=== PATIENT | male | born 1970 | race Caucasian/White ===

== ENCOUNTER → 2022-04-01 | Outpatient (CLI) | payer BC, SELFPAY ==
--- NOTE | 2022-04-01 06:39 | MRI_ITS ---
STUDY: MRI BRAIN WITH AND WITHOUT CONTRAST (ATTENTION INTERNAL AUDITORY CANALS - I.A.C.''s) REASON FOR EXAM: Male, 52 years old. L HEARING LOSS TECHNIQUE: Standardized multiplanar fat and water weighted pulse sequences were obtained. IV 20cc dotarem was administered for the contrast portion of the examination. COMPARISON: None. FINDINGS: Normal bilateral temporal bones. Normal bilateral internal auditory canals. There is no demonstrated intracanalicular or cisternal vestibular schwannoma (acoustic neuroma). There is no enhancement of the bilateral VIIth or VIIIth cranial nerves. Normal bilateral cochlea, vestibules and semicircular canals. Normal size of the ventricles and extra-axial spaces for the patient''s age. Normal white matter tracts of the supratentorial brain. There is no evidence for recent intracranial ischemia or other cause of cytotoxic edema on diffusion weighted imaging (DWI). Normal bilateral basal ganglia. Normal thalami. Normal flow voids within the major intracranial circulation suggesting patency by spin echo criteria. Normal venous enhancement. There is no enhancing intra-axial or extra-axial abnormality. There is no extra-axial fluid accumulation. Normal sella turcica, pituitary gland, infundibular stalk, optic chiasm and hypothalamus. Normal tectal plate and pineal gland. Normal midbrain, sumit and medulla. Normal cerebellum. Normal basal cisterns. No demonstrated orbital abnormality, within the constraints of a routine brain study. Normal visualized paranasal sinuses. Normal calvarium and skull base. Normal visualized soft tissue structures. Normal visualized upper cervical spine. MRI/Brain W/WO Contrast IMPRESSION: Normal unenhanced and enhanced MRI of the bilateral internal auditory canals (I.A.C''s). Electronically Signed: Otis Rayo MD at 17:36 EDT ,
== END | disposition home or self-care (01) ==
PROVIDERS: Referring Provider Otolaryngology Otolaryngology/Facial Plastic Surgery; Visit Provider Otolaryngology Otolaryngology/Facial Plastic Surgery
DX: H91.22 Sudden idiopathic hearing loss, left ear (principal)
CPT/HCPCS: 70553; A9575

== ENCOUNTER → 2025-09-25 | Outpatient (CLI) | payer BC, SELFPAY ==
--- NOTE | 2025-09-25 09:28 | US_ITS ---
PROCEDURE: EXT NON VASC LIMITED/SOFT TISS 09/25/2025 REASON FOR EXAM: 2 CYSTS OF RIGHT SHOULDER AREA AND OF BACK TECHNIQUE: Procedure Code: [id number] Modality: US Procedure: EXT NON VASC LIMITED/SOFT TISS COMPARISON: None. FINDINGS: In the area of concern, there is a circumscribed subcutaneous mass with mixed echogenicity and no internal blood flow. This lesion is located in the left/midline back and measures approximately 1.9 x 1.4 x 1.8 cm. A 2nd lesion of similar character is present in the right posterior shoulder region measuring 2.4 x 1.4 x 2.3 cm. Both structures demonstrate a superficial tract leading towards the skin surface. US/Ext Non Vasc Limited/Soft Tiss IMPRESSION: Two subcutaneous lesions with imaging features most compatible with epidermal i nclusion cysts. No sonographic evidence of inflammation or abscess formation. Reading Location: [id number]
--- OUTSIDE RECORDS SUMMARY | 2025-09-25 10:35 | XMS RPT_ITS | CCD ---
Author Organization [facility] Inform ion Partnership [facility] Care Team Providers Care Heating Repair Technician Name Role Phone Neo MORFIN.Bailey BISHOP Primary Care Provider BAILEY SWAN Attending Unavailable BAILEY SWAN Primary Care Unavailable Care Physician, No Primary Referring Unava ilable Care Physician, No Primary Primary Care Unava ilable Mayo Szymanski Attending Unavailable Mayo Szymanski Attending Unavailable Neo CREPE SOLE WIRE BRUSHER, Bailey Primary Care Unavailable Mayo Szymanski Referring Unavailable Medications Completed/Discontinued Medications Medication Drug Class(es) Dates Sig (Normalized) Sig (Original) hydroCHLOROthiazide 25 mg oral tablet (4 sources) Thiazide Diuretic Start: 3 take 1 tablet by mouth once daily hydroCHLOROthiazide 25 mg tablet Indications: Primary hypertension Take 1 tablet by mouth once daily. 30 tablet 2 08/18/2023 Active Comment on above: Take 1 tablet by joan th once daily. Problems Problem Classification Problem Date Documented Da te Episodic/Chronic Essential hypertension (2 sources) Essential hypertension; Translations: [Essential (primary) hypertension] Onset: 09-16-2025 09-23-2023 Chronic Other circulatory disease (7 sources) Elevated blood-pressure reading without diagnosis of hypertension; Translations: [Elevated blood-pressure reading, without diagnosis of hypertension] Onset: 07-20-2023 07-20-2023 Episodic Other nutritional; endocrine; and metabolic disorders (6 sources) Obese class I; Translations: [Obesity, unspecified] Onset: 07-20-2023 07-20-2023 Chronic Other screening for suspected conditions (not mental disorders or infectious disease) (6 sources) Patient encounter status; Translations: [Encounter for screening for lipoid disorders] Onset: 09-16-2025 07-20-2023 Episodic Other skin disorders (2 sources) Follicular cyst of the skin and subcutaneous tissue, unspecified; Translations: [Follicular cyst of the skin and subcutaneous tissue, unspecified] Onset: 09-11-2025 Episodic Residual codes; unclassified (6 sources) Edema of lower leg ; Translations: [Localized edema] Onset: 07-20-2023 07-20-2023 Episodic Results Test Name Value Interpretation Reference Range Kendal Lee 09-16-2025 CNOV Office Visit (AGFAMPLE) CORNELL MEYERS ([id number]) 1970 M Date Time Provider Department 09/16/25 10:20 AM BAILEY SWAN During your visit today, we recorded the following information about you: Temperature Pulse Respiration Blood pressure 98.1 degrees 88/minute 16/minute 140/86 Weight Height 112.9 kg 1.803 m Bailey Swan APRN.HEARING CARE PRACTITIONER 09/16/2025 12:52 PM Signed CHIEF COMPLAINT: The patient is a 55-year-old male with hypertension, presenting for evaluation of elevated blood pressure readings. I reviewed past medical, surgical, social, and family histories today and updated chart. Allergies, chronic medications, and supplements were also reviewed. Recording using [employer] software for draft documentation of the visit was discussed with the patient/authorized termite control representative; all questions welcomed and answered. Patient/authorized termite control representative agreed to proceed Hypertension: - Last seen in 2022. - Previously managed with HCTZ; discontinued after refills ran out. - Recent BP readings in the 160s, prompting today's visit. - Recent BP at environmental specialist's office was 160/?. - Typical BP readings range from 120-130 mmHg. - Current BP readin/84 mmHg. - Denies chest pain, dyspnea, or peripheral edema. - Occasional sinus headaches; denies dizziness. - Increased stress and anxiety due to work and upcoming anniversary of nephew's passing. - Consumes 2 cups of coffee daily during the week; none on weekends. - Drinks water regularly, especially on office days. - Diet includes frozen vegetables; avoids adding salt but consumes some processed foods. - Walks 6,000 steps daily, 3 days a week; aims to be more active at home. - Former smoker, smoked for one month in early 20s; denies current tobacco use. - Denies alcohol use. PAST MEDICAL HISTORY Diagnosis Date Tinnitus left ear PAST SURGICAL HISTORY Procedure Laterality Date APPENDECTOMY EXTRACTION ERUPTED TOOTH/EXR SOCIAL HISTORY[1] ALLERGIES No Known Allergies Family History Problem Relation Age of Onset other (HTN) Mother other (HTN) Father Lung Cancer Father Crohn's Disease Brother Half-brother may be from his dad's side Asthma Maternal Grandmother Emphysema Maternal Grandfather Current Outpatient Medications Medication Sig Dispense Refill Blood Pressure Monitor 1 each as directed. 1 kit 0 No current facility-administered medications for this visit. Review of Systems Head: (+) sinus headaches Ears/Nose/Mouth/Throa t: (+) nasal dryness Cardiovascular: (-) chest pain, (-) peripheral edema Respiratory: (-) shortness of breath Neurological: (-) dizziness Psychiatric: (+) anxiety BP 140/86 Pulse 88 Temp (Src) 98.1 (Oral) Resp 16 Ht 5' 11" (1.80m) Wt 249 lb (112.9kg) SpO2 98% BMI 34.74 kg/(m2). 09/16/25 1007 09/16/25 1050 BP: 148/84 140/86 Pulse: 88 Resp: 16 Temp: 36.7 ?C (98.1 ?F) TempSrc: Oral SpO2: 98% Weight: 112.9 kg (249 lb) Height: 180.3 cm (5' 11") Physical Exam GENERAL: NAD, alert and oriented. SKIN: Unremarkable, no rash or skin lesions. NECK: Supple, no lymphadenopathy, normal thyroid LUNGS: Clear to auscultation bilaterally, no wheezes/rhonchi/rales . HEART: Regular rate and rhythm, no murmurs. No ectopy. EXTREMITIES: Normal, no deformities, no skin discoloration, no edema. NEURO: Awake, alert and oriented x3 No visits with results within 1 Day(s) from this visit. Latest known visit with results is: Appointment on 09/28/2023 Component Date Value Ref Range Status Glucose 09/28/2023 88 74 - 99 mg/dL Final The [place] Diabetes Association (ADA) provides guidance for cutoff values for fasting glucose and random glucose. The ADA defines fasting as no caloric intake for at least 8 hours. Fasting plasma glucose results between 100 to 125 mg/dL indicate increased risk for diabetes (prediabetes). Fasting plasma glucose results greater than or equal to 126 mg/dL meet the criteria for diagnosis of diabetes. In the absence of unequivocal hyperglycemia, results should be confirmed by repeat testing. In a patient with classic symptoms of hyperglycemia or hyperglycemic crisis, random plasma glucose results greater than or equal to 200 mg/dL meet the criteria for diagnosis of diabetes. Reference: Standards of Medical Care in Diabetes 2016, [place] Diabetes Association. Diabetes Care. 2016.39(Suppl 1). BUN 09/28/2023 11 9 - 24 mg/dL Final Creatinine 09/28/2023 0.99 0.73 - 1.22 mg/dL Final Sodium 09/28/2023 144 136 - 144 mmol/L Final Potassium 09/28/2023 3.9 3.7 - 5.1 mmol/L Final Chloride 09/28/2023 104 97 - 105 mmol/L Final CO2 09/28/2023 29 22 - 30 mmol/L Final Anion Gap 09/28/2023 11 9 - 18 mmol/L Final Calcium, Total 09/28/2023 9.4 8.5 - 10.2 mg/dL Final Estimated Glomerular Filtration Ra* 09/28/2023 92 >=60 mL/min/1.73m? Final Larisa (more content not included)... Normal [facility] Visit Report on 09-11-2025 Plastic Surgery Visit Report [facility] Plastic Reconstructive Surgery [address], [address] [place] [address] OFFICE VISIT Date of Service: 09/11/25 MR#: [id number] Acct: [id number] Name: CORNELL MEYERS Rep #: [id number] : 1970 Provider: TATE Dailey Age/Sex: 55/M Location[facility] Status: Signed Reviewed and agree Intake Vital Signs 09/11/25 13:36 Height 6 ft Weight: 257 lb BMI 34.8 BP 159/109 H Blood Pressure Location Rt brachial Position Sitting Respiration 18 Pulse 98 Pulse Source Monitor Pulse Oximetry (%) 98 Oxygen Delivery Method room air Intake Visit Reasons: Cyst on right shoulder and middle back Chief Complaint: cyst on right shoulder Is patient in pain?: No Allergies No Known Allergies Allergy (Unverified 09/11/25 09:20) Medications ???Medication ???Instructions ???Recorded ???Confirmed ???Type NK 09/11/25 09/11/25 History Nurse's Note: pt blood pressure elevated. Pt states he is stressed this morning. Advised him to monitor [facility] Medical History (Updated 09/12/25 @ 16:[address] Jamie Smalls MD) Benign skin cyst Hypertension Social History Smoking Status: Never smoker HPI Cyst on right shoulder and middle back Details: Patient is a 55-year-old male presenting today for initial consultation for cyst in right shoulder area he was by [facility] dermatology. Past medical history significant for hypertension not c urrently on any medications. Patient states he had left anterior chest wall cyst, right shoulder cyst and mid back cyst a very long time. Left anterior chest cyst spontaneously started draining and [facility]. There is a scant drainage not currently on antibiotics and pending excision. He noticed his right shoulder cyst has been growing overtime. Denies pain, numbness, tingling, swelling, fever, chills. He does not smoke, does not use tobacco products, does not have history of diabetes, hypothyroid, healing issues, bleeding or clotting issues. ROS Details General: Denies fever, chills HEENT: Denies headaches, vision changes, sore throat Cardio: Denies chest pain, leg edema Pulmonary: Denies shortness of pain, cough, wheezing GI: Denies nausea, vomiting, diarrhea General General: Yes good health; No fatigue, fever(s) or weight loss HENMT HENMT: No rhinitis, sore throat/mouth sore, nasal congestion, contacts or glaucoma Endo Endocrine: No thyroid disease, polydipsia, heat intolerance, cold intolerance, hepatitis or excessive urine Skin Skin: No Bleeding, bruising, changing moles or suspicious lesion Musc Musculoskeletal: No joint pain, joint stiffness, muscle weakness, back pain, osteoarthritis or Muscle aches/ myalgia Neuro Neurological: No headache(s), No lightheadedness and No numbness Cardio Cardiovascular: No chest pain, pacemaker, fatigue or shortness of breat with exertion Psych Psychiatric: No depression, claustrophobia or anxiety Resp Respiratory: No spitting up, shortness of breath, sleep apnea, asthma, emphysema, TB, Cough or Smoker Gastro Gastrointestinal: No diarrhea, constipation, blood in stool, nausea, vomiting or abdominal bloating Gerardo Hematologic: No anemia, No bleeding and No abnormal bleeding Genitourinary: No urinary frequency, blood in urine or incontinence Exam Details Hypertensive 159/109, no acute distress Left anterior chest wall with scabbing and scant serous drainage noted. No surrounding erythema, induration, fluid collection. Right supraspinatus area has 4 cm x 3 cm mobile well-circumscribed cyst, nontender to palpation, no induration, drainage, no erythema Mid back (midline) 1 cm by approximately mobile well-circumscribed cyst nontender to palpation no induration drainage or erythema. No axillary lymphadenopathy. right shoulder range of motion intact, grossly normal strength Coding Level of Care Code Off vis,new,level 2 Diagnoses Benign skin cyst L72.9 Assessment and Plan (No Qualifiers) Assessment and Plan (1) Benign skin cyst: Status: Acute Plan: Will obtain right shoulder area ultrasound to assess depth and surrounding structures and for surgical planning. He does not wish to have his mid back cyst addressed at this time. Advised patient to follow up with PCP to have HTN reassessed and start medical treatment if needed Return in 2 weeks for US results and surgical discussion. He was in agreement with plan. 09/12/25 1619 Date Jamie Smalls MD 09/11/25 1415 Cosigner Signature: Date (if applicable) Mayo Szymanski CC: Normal [facility] CORONAVIRUS 2019 BY PCRon CORONAVIRUS 2019,PCR DETECTED Abnormal Not Detected [facility] Comment on above: Order Comment: RESUL TS CALLED RB TO ROQUE, 10/07/2020 09:23 Result Comment: . This assay is designed to detect the N, ORF1ab and/or S genes of SARS-CoV-2 via nucleic acid amplification. A Negative (NOT DETECTED) result does not preclude 2019-nCoV infection since the adequacy of sample collection and/or low viral burden may result in presence of viral nucleic acids below the clinical sensitivity of this test method. Negative (NOT DETECTED) result should not be used as the sole basis for treatment or other patient management decisions. Rather negative results should be combined with clinical observations, patient history, and epidemiological information to make patient management decisions. Fact sheet for providers: https://www.fda.gov/media/592407/download Fact sheet for patients: https://www.fda.gov/media/353686/download This test has received FDA Emergency Use Authorization (EUA) and has been verified by [facility] ([facility]). This test is only authorized for the duration of time that circumstances exist to justify the authorization of the emergency use of in vitro diagnostic tests for the detection of SARS-CoV-2 virus and/or diagnosis of COVID-19 infection under section 564(b)(1) of the Act, 21 U.S.C. 360bbb-3(b)(1), unless the authorization is terminated or revoked sooner. [facility] is certified under CLIA-88 as qualified to perform high complexity testing. Testing is performed in the [facility] laboratories located at [address] [place] [address]. RESULTS CALLED RB TO ROQUE, 10/07/2020 09:23 Performed By: #### C OV19 #### [place] [id number] [facility] [place] [address] DATE OF SYMPTOM ONSET [YYYYMMDD]? [id number] Normal [facility] Comment on above: Order Comment: RESUL TS CALLED RB TO ROQUE, 10/07/2020 09:23 Performed By: #### C OV19 #### [facility] [id number] [address] [facility] [place] [place] [address] EMPLOYED IN HEALTHCARE? No Normal [facility] Comment on above: Order Comment: RESUL TS CALLED RB TO ROQUE, 10/07/2020 09:23 Performed By: #### C OV19 #### [facility] [address] [place] [id number] FIRST COVID NASAL SWAB TEST? Yes Normal [facility] Comment on above: Order Comment: RESUL TS CALLED RB TO ROQUE, 10/07/2020 09:23 Performed By: #### C OV19 #### [facility] [address] [place] [id number] HOSPITALIZED (OR PLANNED TO BE ADMITTED)? No Normal [facility] Comment on above: Order Comment: RESUL TS CALLED RB TO ROQUE, 10/07/2020 09:23 Performed By: #### C OV19 #### [facility] [address] [place] [address] ICU? No Normal [facility] Comment on above: Order Comment: RESUL TS CALLED RB TO ROQUE, 10/07/2020 09:23 Performed By: #### C OV19 #### [facility] [address] [place] [address] RESIDENT IN CONGREGATE CARE SETTING? No Normal [facility] Comment on above: Order Comment: RESUL TS CALLED RB TO ROQUE, 10/07/2020 09:23 Performed By: #### C OV19 #### [facility] [address] [place] [id number] SYMPTOMATIC DEFINED BY CDC? Yes Normal [facility] Comment on above: Order Comment: RESUL TS CALLED RB TO ROQUE, 10/07/2020 09:23 Performed By: #### C OV19 #### [facility] [address] [place] [id number] Covid 19 Resultson 0 Covid 19 Results Adult POSITIVE COVID-19 Test [place]alking [place] Your local Health Department may be in contact, as they are tracking all POSITIVE patients. Limit your contact with others (HOME ISOLATION). You should be home quarantined unless your local public health department tells you otherwise. If you do not hear from the public health department, you should remain in quarantine at home until it has been at least 10 days since symptoms started AND no fever for at least 24 hours without fever reducing medicine AND your symptoms are improving. If you are a employee, Employee Health will contact you for return to work instructions. As much as possible, stay in a specific room and away from other people in your home. Also, you should use a separate bathroom if possible. People who do not have a need to be in your home should not visit. Try to stay in places in the home that have good airflow. Allow getting fresh air when possible. It is very important to cover their mouth and nose with a tissue when coughing or sneezing. After coughing or sneezing or cleaning up used tissues, immediately wash your hands with soap and water for at least 20 seconds. If soap and water are not available, clean hands with an alcohol-based hand filter press supervisor that contains at least 60% alcohol. Remember to clean your hands often. Avoid sharing personal household items such as dishes, drinking glasses, cups, eating utensils, towels, or bedding with other people or pets in your home. After you use these items, they should be washed with soap and water. Clean all high-touch surfaces (tabletops, doorknobs, bathroom fixtures, toilets, phones, keyboards, tablets, and bedside tables) every day with antibacterial cleaning solutions such as Lysol wipes, bleach, cleansers, etc. Immediately clean any surfaces that may have your blood, poop, or body fluids like tears, drool, urine, sweat, and mucous on them. Use antibacterial cleaning solutions such as Lysol wipes, bleach, cleansers, etc. Wash laundry thoroughly. Immediately remove and wash clothes or bedding that have blood, poop, or body fluids on them. Read and follow directions on labels of laundry detergent and/or clothing items. If possible, mask whenever you leave your room. Recommendations for those caring for someone with COVID-19 Wash your hands frequently with soap and water for 20 seconds or use an alcohol-based hand filter press supervisor that contains at least 60% alcohol. Avoid touching your face Do not permit visitors who do not have an essential need to be in your home. Mask when caring for these individuals. Household members caring for a COVID-19 positive patient should consider self-quarantine for 14 days. If symptoms develop, testing for COVID-19 should be considered.. Revised 7.28.20 Electronic Signatures: [employer], [employer] (ADMIN) (Signature pending) Authored Last Updated: 07-Oct-2020 08:33 by [employer], [employer] (ADMIN) Normal [facility] CORONAVIRUS 2019 BY Zuri Lab Specimen Source Nasal, Nasopharyngeal Normal [facility] Comment on above: Order Comment: RESUL TS CALLED RB TO ROQUE, 10/07/2020 09:23 Performed By: #### C OV19 #### [facility] [id number] [address] Vital Signs Date Time Vital Sign Value Performing Clinician Joselyni fabian 09-19-2023 08:22-0400 Diastolic blood pressure 84 mm[Hg] Nurse [place] Work Phone: [facility] 09-19-2023 08:22-0400 Systolic blood pressure 122 mm[Hg] Nurse [place] Work Phone: [facility] 07-20-2023 09:45-0400 Body height 180.3 cm Bailey Queden MERCURY PURIFIER.HEARING CARE PRACTITIONER Work Phone: [facility] 07-20-2023 09:45-0400 Body temperature 98.01 [degF] Bailey Queden MERCURY PURIFIER.HEARING CARE PRACTITIONER Work Phone: [facility] 07-20-2023 09:45-0400 Body weight 112.27 kg Bailey Queden MERCURY PURIFIER.HEARING CARE PRACTITIONER Work Phone: [facility] 07-20-2023 09:45-0400 Diastolic blood pressure 78 mm[Hg] Bailey Queden MERCURY PURIFIER.HEARING CARE PRACTITIONER Work Phone: [facility] 07-20-2023 09:45-0400 Heart rate 85 /min Bailey Queden MERCURY PURIFIER.HEARING CARE PRACTITIONER Work Phone: [facility] 07-20-2023 09:45-0400 Respiratory rate 19 /min Bailey Queden MERCURY PURIFIER.HEARING CARE PRACTITIONER Work Phone: [facility] 07-20-2023 09:45-0400 SaO2% (BldA) [Mass fraction] 96 % Bailey Queden MERCURY PURIFIER.HEARING CARE PRACTITIONER Work Phone: [facility] 07-20-2023 09:45-0400 Systolic blood pressure 122 mm[Hg] Bailey Swan MERCURY PURIFIER.HEARING CARE PRACTITIONER Work Phone: [facility] Encounters Encounter Date Encounter Type Care Provider Facility Start: 09-25-2025 ambulatory Mayo Szymanski Facility:[facility] Start: 09-16-2025 End: 09-16-2025 ambulatory BAILEY SWAN Facility:[facility] Start: 09-11-2025 End: 09-11-2025 ambulatory No Primary Care Physician Facility:[facility] Start: 09-28-2023 Telephone encounter Bailey Swan MERCURY PURIFIER.HEARING CARE PRACTITIONER [facility] Phone: [facility] Comment on above: Results Start: 09-19-2023 End: 09-19-2023 Nursing evaluation of patient and report Nurse Preston De La Rosa [place] Work Phone: [facility] Comment on above: Elevated blood press ure reading without diagnosis of hypertension (Primary Dx) Start: 09-15-2023 Telephone encounter Bailey Swan MERCURY PURIFIER.HEARING CARE PRACTITIONER Work Phone: [facility] Comment on above: Lab Orders Start: 08-18-2023 Telephone encounter Bailey Swan APRN.HEARING CARE PRACTITIONER Work Phone: [facility] Comment on above: Results Start: 07-20-2023 End: 07-20-2023 Patient encounter procedure Bailey Swan MERCURY PURIFIER.HEARING CARE PRACTITIONER Work Phone: [facility] Comment on above: Elevated blood press ure reading without diagnosis of hypertension (Primary Dx); Lower leg edema; Obesity, Class I, BMI 30-34.9; Screening for lipid disorders; Screening for diabetes mellitus; Screening for thyroid disorder; Screening for depression Start: 04-01-2022 End: 04-01-2022 Patient encounter procedure [facility] Procedures Date Procedure Procedure Detail Performing Clinician Start: 08-17-2023 Lipid 1996 panel - S ashley or Plasma Bailey Swan MERCURY PURIFIER.HEARING CARE PRACTITIONER Work Phone: Start: 04-01-2022 MRI of brain with contrast Start: 12-22-2020 Follow-up visit Plan of Treatment Date Care Activity Detail Author Start: 08-17-2028 Lipid 1996 panel - S ashley or Plasma Lipid Screening [facility] Start: 09-28-2026 Diabetes Screening Diabetes Screenin g [facility] Start: 08-17-2026 Diabetes Screening Diabetes Screenin g [facility] Start: 07-20-2024 COLORECTAL CANCER SCREENING COLORECTAL CANCER SCREENING [facility] Comment on above: Postponed from 01/27 (Declined at this time) Start: 07-20-2024 COVID-19 VACCINE (#1) COVID-19 VACCI NE (#1) [facility] Comment on above: Postponed from 07/30 (Declined at this time) Start: 07-20-2024 HEPATITIS B (1 of 3 - 3-dose series) HEPATITIS B (1 of 3 - 3-dose series) [facility] Comment on above: Postponed from 01/27 (Declined at this time) Start: 07-20-2024 Hepatitis B Vaccine (1 of 3 - 3-dose series) Hepatitis B Vaccine (1 of 3 - 3-dose series) [facility] Comment on above: Postponed from 01/27 (Declined at this time) Start: 07-20-2024 HEPATITIS C SCREENING HEPATITIS C [facility] Comment on above: Postponed from 01/27 (Declined at this time) Start: 07-20-2024 HIV SCREENING HIV SCREENING [facility] Comment on above: Postponed from 01/27 (Declined at this time) Start: 07-20-2024 SHINGRIX VACCINE (1 of 2) SHINGRIX VACCINE (1 of 2) [facility] Comment on above: Postponed from 01/27 (Declined at this time) Start: 07-20-2024 Urine microalbumin profile [facility] Comment on above: Postponed from 01/27 (Declined at this time) Start: 09-23-2023 End: 12-23-2023 Basic metabolic 2000 panel - Serum or Plasma BASIC METABOLIC PNL Lab Routine Primary hypertension Expected: 09/23/2023, Expires: 12/23/2023 [facility] Work Phone: Comment on above: Expected: 09/23/2023 , Expires: 12/23/2023 Start: 07-21-2023 Influenza vaccination C [facility] Start: 07-20-2023 End: 09-19-2023 CBC panel - Blood by Automated count CBC Lab Routine Elevated blood pressure reading without diagnosis of hypertension Expected: 07/20/2023, Expires: 09/19/2023 [facility] Work Phone: Comment on above: Expected: 07/20/2023 , Expires: 09/19/2023 Start: 07-20-2023 End: 09-19-2023 Comprehensive metabolic 2000 panel - Serum or Plasma COMP METABOLIC PANEL Lab Routine Elevated blood pressure reading without diagnosis of hypertension Expected: 07/20/2023, Expires: 09/19/2023 [facility] Work Phone: Comment on above: Expected: 07/20/2023 , Expires: 09/19/2023 Start: 07-20-2023 End: 09-19-2023 Hemoglobin A1c in Blood HGB A1C Lab Routine Screening for diabetes mellitus Expected: 07/20/2023, Expires: 09/19/2023 [facility] Work Phone: Comment on above: Expected: 07/20/2023 , Expires: 09/19/2023 Start: 07-20-2023 End: 09-19-2023 Lipid 1996 panel - Serum or Plasma LIPID PANEL BASIC Lab Routine Elevated blood pressure reading without diagnosis of hypertension Expected: 07/20/2023, Expires: 09/19/2023 [facility] Work Phone: Comment on above: Expected: 07/20/2023 , Expires: 09/19/2023 Start: 07-20-2023 End: 09-19-2023 Thyrotropin [Units/volume] in Serum or Plasma TSH BLD Lab Routine Elevated blood pressure reading without diagnosis of hypertension Screening for thyroid disorder Expected: 07/20/2023, Expires: 09/19/2023 [facility] Work Phone: Comment on above: Expected: 07/20/2023 , Expires: 09/19/2023 Start: 01-27-2017 COLOGUARD (FIT-DNA) COLOGUARD (FIT-D NA) [facility] Start: 01-27-2017 Colonoscopy COLONOSCOPY [facility] Start: 01-27-[address] COLONOGRAPHY [facility] Start: 01-27-2017 DIABETES SCREEN DIABETES SCREEN [facility] Start: 01-27-2017 FECAL OCCULT BLOOD FECAL OCCULT BLOO D [facility] Start: 01-27-2017 [facility] Start: 01-27-2007 LIPID SCREEN LIPID SCREEN [facility] Payers Date Payer Category Payer Self-pay [id number] 2021 Unknown [employer] PPO [id number] 2021-Present [phone] [address] [place] [address] PPO [id number] 2021 Unknown [id number] Unknown [id number] Unknown [id number] Social History Date Type Detail Facility Tobacco smoking stat [facility] Unknown if ever smoked [facility] Work Phone: Start: 1970 Sex Assigned At Male [facility] Work Phone: Start: 07-20-2023 [facility] History of tobacco use Current smoker [facility] History of tobacco use Cigarette Smoker [facility] Start: 07-20-2023 Tobacco use and exposure Smokeless tobacco non-user [facility] Start: 07-20-2023 Alcohol intake Current drinke r of alcohol (finding) [facility] Start: 07-20-2023 History of Social function [facility] Start: 07-20-2023 Tobacco use panel [facility] Adult Depression Screening Assessment 2 [facility] Start: 07-20-2023 Alcohol Comment occ. [facility] Start: 1970 Sex Assigned At Not on file C [facility] Clinical Notes 07-20-2023 to 09-16-2025 Telephone Encounter - Lizabeth Soler EVY - 09/28/2023 12:21 PM ESTTelephone Encounter - Lizabeth Soler EVY - 09/28/2023 12:20 PM ESTTelephone Encounter - Rosanna HaasEVY - 09/25/2023 11:48 AM EST Note Date & Type Note Facility 09-16-2025 Note HNO ID: [id number] Author: BAILEY SWAN APRN.HEARING CARE PRACTITIONER Service: ? Author Type: Nurse Practitioner Type: Progress Notes Filed: 09/16/2025 12:52 Note Text: CHIEF COMPLAINT: The patient is a 55-year-old male with hypertension, presenting for evaluation of elevated blood pressure readings. I reviewed past medical, surgical, social, and family histories today and updated chart. Allergies, chronic medications, and supplements were also reviewed. Recording using [employer] software for draft documentation of the visit was discussed with the patient/authorized termite control representative; all questions welcomed and answered. Patient/authorized termite control representative agreed to proceed Hypertension: - Last seen in 2022. - Previously managed with HCTZ; discontinued after refills ran out. - Recent BP readings in the 160s, prompting today's visit. - Recent BP at environmental specialist's office was 160/?. - Typical BP readings range from 120-130 mmHg. - Current BP readin/84 mmHg. - Denies chest pain, dyspnea, or peripheral edema. - Occasional sinus headaches; denies dizziness. - Increased stress and anxiety due to work and upcoming anniversary of nephew's passing. - Consumes 2 cups of coffee daily during the week; none on weekends. - Drinks water regularly, especially on office days. - Diet includes frozen vegetables; avoids adding salt but consumes some processed foods. - Walks 6,000 steps daily, 3 days a week; aims to be more active at home. - Former smoker, smoked for one month in early 20s; denies current tobacco use. - Denies alcohol use. PAST MEDICAL HISTORY Diagnosis Date Tinnitus left ear PAST SURGICAL HISTORY Procedure Laterality Date APPENDECTOMY EXTRACTION ERUPTED TOOTH/EXR SOCIAL HISTORY[1] ALLERGIES No Known Allergies Family History Problem Relation Age of Onset other (HTN) Mother other (HTN) Father Lung Cancer Father Crohn's Disease Brother Half-brother may be from his dad's side Asthma Maternal Grandmother Emphysema Maternal Grandfather Current Outpatient Medications Medication Sig Dispense Refill Blood Pressure Monitor 1 each as directed. 1 kit 0 No current facility-administered medications for this visit. Review of Systems Head: (+) sinus headaches Ears/Nose/Mouth/Throat: (+) nasal dryness Cardiovascular: (-) chest pain, (-) peripheral edema Respiratory: (-) shortness of breath Neurological: (-) dizziness Psychiatric: (+) anxiety BP 140/86 Pulse 88 Temp (Src) 98.1 (Oral) Resp 16 Ht 5' 11" (1.80m) Wt 249 lb (112.9kg) SpO2 98% BMI 34.74 kg/(m2). 09/16/25 1007 09/16/25 1050 BP: 148/84 140/86 Pulse: 88 Resp: 16 Temp: 36.7 ?C (98.1 ?F) TempSrc: Oral SpO2: 98% Weight: 112.9 kg (249 lb) Height: 180.3 cm (5' 11") Physical Exam GENERAL: NAD, alert and oriented. SKIN: Unremarkable, no rash or skin lesions. NECK: Supple, no lymphadenopathy, normal thyroid LUNGS: Clear to auscultation bilaterally, no wheezes/rhonchi/rales. HEART: Regular rate and rhythm, no murmurs. No ectopy. EXTREMITIES: Normal, no deformities, no skin discoloration, no edema. NEURO: Awake, alert and oriented x3 No visits with results within 1 Day(s) from this visit. Latest known visit with results is: Appointment on 09/28/2023 Component Date Value Ref Range Status Glucose 09/28/2023 88 74 - 99 mg/dL Final The [place] Diabetes Association (ADA) provides guidance for cutoff values for fasting glucose and random glucose. The ADA defines fasting as no caloric intake for at least 8 hours. Fasting plasma glucose results between 100 to 125 mg/dL indicate increased risk for diabetes (prediabetes). Fasting plasma glucose results greater than or equal to 126 mg/dL meet the criteria for diagnosis of diabetes. In the absence of unequivocal hyperglycemia, results should be confirmed by repeat testing. In a patient with classic symptoms of hyperglycemia or hyperglycemic crisis, random plasma glucose results greater than or equal to 200 mg/dL meet the criteria for diagnosis of diabetes. Reference: Standards of Medical Care in Diabetes 2016, [place] Diabetes Association. Diabetes Care. 2016.39(Suppl 1). BUN 09/28/2023 11 9 - 24 mg/dL Final Creatinine 09/28/2023 0.99 0.73 - 1.22 mg/dL Final Sodium 09/28/2023 144 136 - 144 mmol/L Final Potassium 09/28/2023 3.9 3.7 - 5.1 mmol/L Final Chloride 09/28/2023 104 97 - 105 mmol/L Final CO2 09/28/2023 29 22 - 30 mmol/L Final Anion Gap 09/28/2023 11 9 - 18 mmol/L Final Calcium, Total 09/28/2023 9.4 8.5 - 10.2 mg/dL Final Estimated Glomerular Filtration Ra* 09/28/2023 92 >=60 mL/min/1.73m? Final Estimated Glomerular Filtration Rate (eGFR) is calculated using the 2020 CKD-EPI creatinine equation. This equation utilizes serum creatinine, sex, and age as parameters. The creatinine assay has traceable calibration to isotope dilution-mass spectrometry. Refer to KDIGO guidelines for clinical interpretation. In patie (more content not included)... [facility] 09-28-2023 Miscellaneous Notes Formattin g of this note might be different from the original. Patient informed of results. Lizabeth Soler MA ----- Message from Bailey Swan APRN.HEARING CARE PRACTITIONER sent at 09/28/2023 11:39 AM EST ----- Please let patient know their results are WNL. Thank you. documented in this encounter [facility] 09-25-2023 Miscellaneous Notes Formattin g of this note might be different from the original. Left message on patients vm with all information. Rosanna Haas MA BMP order placed after stating HCTZ. ----- Message from Maria Antonia Dean MA sent at 08/18/2023 3:17 PM EDT ----- Recheck BMP in 4 weeks documented in this encounter [facility] 09-19-2023 History of Presen t illness Narrative Patient is here for BP check. Their current BP medications are HCTZ 25 mg BP:122/84 BP stayed the same. Per PCP continue meds and follow up in Dec Maria Antonia Dean MA documented in this encounter [facility] 08-18-2023 Miscellaneous Notes Formattin g of this note might be different from the original. Patient is informed Maria Antonia Dean MA ----- Message from Bailey Swan APRN.CNP sent at 08/18/2023 5:16 PM EDT ----- Labs were WNL Triglycerides were slightly elevated on lipid panel but otherwise WNL documented in this encounter [facility] 07-20-2023 Instructions Bailey Swan APRN.CNP - 07/20/2023 10:24 AM EDT Patient education: High blood pressure in adults What is high blood pressure? -- High blood pressure is a condition that puts you at risk for heart attack, stroke, and kidney disease. It does not usually cause symptoms. But it can be serious. When your doctor or nurse tells you your blood pressure, he or she will say 2 numbers. For instance, your doctor or nurse might say that your blood pressure is "140 over 90." The top number is the pressure inside your arteries when your heart is arnav. The bottom number is the pressure inside your arteries when your heart is relaxed. The table shows how doctors and nurses define high and normal blood pressure "Elevated blood pressure" is a term doctors or nurses use as a warning. People with elevated blood pressure do not yet have high blood pressure. But their blood pressure is not as low as it should be for good health. How can I lower my blood pressure? -- If your doctor or nurse has prescribed blood pressure medicine, the most important thing you can do is to take it. If it causes side effects, do not just stop taking it. Instead, talk to your doctor or nurse about the problems it causes. He or she might be able to lower your dose or switch you to another medicine. If cost is a problem, mention that too. He or she might be able to put you on a less expensive medicine. Taking your blood pressure medicine can keep you from having a heart attack or stroke, and it can save your life! Can I do anything on my own? -- You have a lot of control over your blood pressure. To lower it: ?Lose weight (if you are overweight) ?Choose a diet low in fat and rich in fruits, vegetables, and low-fat dairy products ?Reduce the amount of salt you eat ?Do something active for at least 30 minutes a day on most days of the week ?Cut down on alcohol (if you drink more than 2 alcoholic drinks per day) It's also a good idea to get a home blood pressure meter. People who check their own blood pressure at home do better at keeping it low and can sometimes even reduce the amount of medicine they take. EDEMA CAUSES AND TREATMENTS CAUSES OF LEG SWELLING HOW TO REDUCE LEG SWELLING Sitting with your legs hanging down Elevate your toes above your nose! Sit in a recliner with your legs up Standing for long periods of time Wear compression stockings as ordered by your Doctor: Apply them first things in the morning and remove them at bedtime Eating foods high in salt Avoid canned foods, look for low sodium or no salt added foods Medical conditions that cause you to retain fluid: Congestive heart failure, Venous Stasis Take medications as ordered. Take diuretics (water pills) early in the day Sleeping in a chair with you legs hanging down Place a pillow or several phone books between the mattress and box spring of your bed. Sleep in a hospital bed or electric adjustable bed documented in this encounter [facility] 07-20-2023 History of Presen t illness Narrative Images from the original note were not included. [facility] Bailey Swan APRN-DARIO [address] [place] [address] Dept Dept. Visit Date: July 20, 2023 Mr.Keith Brea Meyers Date of : 1970 MRN/E #: [id number] Chief Complaint: Patient presents with: Establish Care Blood Pressure Check History of Present Illness Cornell Meyers is a 53 year old male presents today as a new patient to establish care. I reviewed past medical, surgical, social, and family histories today and updated chart. Allergies, chronic medications, and supplements were also reviewed. He reports he was on medication for his BP and cholesterol in the past but this was > 10 years ago. He was recently in the dentist office and his BP was elevated while there. They checked it with the an automated wrist cuff. He thinks it was it was 150's/? Fitness center 3-5 times a week Cardio, walking Smoked for 1 month in his 20's On rare occasion with have alcohol Caffeine- 2 cups of coffee a day (24 ounces total), no energy drinks, rare pop intake The history is provided by the patient. No bookstore manager was used. PAST MEDICAL HISTORY Diagnosis Date Tinnitus left ear PAST SURGICAL HISTORY Procedure Laterality Date APPENDECTOMY EXTRACTION ERUPTED TOOTH/EXR Social History Tobacco Use Smoking status: Former Types: Cigarettes Smokeless tobacco: Never Substance Use Topics Alcohol use: Yes Comment: occ. Drug use: Never Social History Social History Narrative Not on file Family History Reviewed Including Cardiac Diseases, Psychiatric Diseases, & Substance Abuse Problem: other (HTN) Relation: Mother Age of Onset: (Not Specified) Problem: other (HTN) Relation: Father Age of Onset: (Not Specified) Problem: Lung Cancer Relation: Father Age of Onset: (Not Specified) Problem: Crohn's Disease Relation: Brother Age of Onset: (Not Specified) Comment: Half-brother may be from his dad's side Problem: Asthma Relation: Maternal Grandmother Age of Onset: (Not Specified) Problem: Emphysema Relation: Maternal Grandfather Age of Onset: (Not Specified) ALLERGIES No Known Allergies No current outpatient medications on file. No current facility-administered medications for this visit. Review of Systems Review of Systems Constitutional: Negative for appetite change, chills, diaphoresis, fatigue, fever and unexpected weight change. HENT: Negative. Eyes: Negative for visual disturbance. Respiratory: Negative for cough, chest tightness, shortness of breath and wheezing. Cardiovascular: Positive for leg swelling (mild, L>R). Negative for chest pain and palpitations. Gastrointestinal: Negative for abdominal pain, constipation, diarrhea, nausea and vomiting. Endocrine: Negative. Genitourinary: Negative. Musculoskeletal: Negative. Skin: Negative. Allergic/Immunologic: Negative. Neurological: Negative for dizziness, syncope, light-headedness and headaches (from sinuses, not frequent). Hematological: Negative. Psychiatric/Behavioral: Positive for sleep disturbance. Negative for dysphoric mood. The patient is nervous/anxious. Vital Signs BP 122/78 Pulse 85 Temp 98 Resp 19 Ht 5' 11" (1.80m) Wt 247 lb 8 oz (112.3kg) SpO2 96% BMI 34.53 kg/(m^2). Physical Exam Vitals and nursing note reviewed. Constitutional: Appearance: Normal appearance. He is well-developed. He is obese. HENT: Head: Normocephalic. Nose: Nose normal. Mouth/Throat: Lips: [place]. Mouth: Mucous membranes are moist. Pharynx: Oropharynx is clear. Eyes: General: Vision grossly intact. Conjunctiva/sclera: Conjunctivae normal. Pupils: Pupils are equal, round, and reactive to light. Neck: Thyroid: No thyroid mass or thyromegaly. Cardiovascular: Rate and Rhythm: Normal rate and regular rhythm. Heart sounds: Normal heart sounds. No murmur heard. Pulmonary: Effort: Pulmonary effort is normal. No respiratory distress. Breath sounds: Normal breath sounds and air entry. Musculoskeletal: Cervical back: Neck supple. Right lower le+ Edema (mild pitting from mid calf to ankle) present. Left lower le+ Edema (mild pitting from mid calf to ankle) present. Lymphadenopathy: Cervical: No cervical adenopathy. Skin: General: Skin is warm and dry. Neurological: General: No focal deficit present. Mental Status: He is alert and oriented to person, place, and time. Motor: Motor function is intact. Psychiatric: Mood and Affect: Mood and affect normal. Speech: Speech normal. Behavior: Behavior normal. Behavior is cooperative. Thought Content: Thought content normal. Cognition and Memory: Cognition normal. Judgment: Judgment normal. Visit Diagnoses (R03.0) Elevated blood pressure reading without diagnosis of hypertension (primary encounter diagnosis) (R60.0) Lower leg edema (E66.9) Obesity, Class I, BMI 30-34.9 (Z13.220) Screening for lipid disorders (Z13.1) Screening for diabetes mellitus (Z13.29) Screening for thyroid disorder (Z13.31) Screening for depression Assessment and Plan 1. Elevated blood pressure reading without diagnosis of hypertension - ICD9: 796.2, ICD10: R03.0 (primary diagnosis) Transient BP elevation - Encouraged dietary sodium restriction/DASH diet - Recommended regular aerobic exercise. - Recommend home blood pressure monitoring, to bring results in on next visit - Discussed need and benefit for weight loss. - Recheck in 4 weeks, sooner if needed. - Goal of BP <130/80 - LIPID PANEL BASIC - COMP METABOLIC PANEL - CBC - TSH BLD 2. Lower leg edema - ICD9: 782.3, ICD10: R60.0 - Increase water intake, reduce sodium intake, elevate, compression stockings 3. Obesity, Class I, BMI 30-34.9 - ICD9: 278.00, ICD10: E66.9 Newly diagnosed - Behavioral intervention 4. Screening for lipid disorders - ICD9: V77.91, ICD10: Z13.220 5. Screening for diabetes mellitus - ICD9: V77.1, ICD10: Z13.1 - HGB A1C 6. Screening for thyroid disorder - ICD9: V77.0, ICD10: Z13.29 - TSH BLD 7. Screening for depression - ICD9: V79.0, ICD10: Z13.31 - DEPRESSION SCREENING/ASSESSMENT Discussed above plan with patient an is agreeable with above plan. Follow up visit Return in about 4 weeks (around 08/17/2023) for BP check- [place]. Bailey Swan APRN.CNP, signed on July 20, 2023 10:03 AM documented in this encounter [facility] Evaluation note No assessment inform ation available [facility] Work Phone: Evaluation note Diagnosis Elevated blood pressure reading without diagnosis of hypertension- Primary Lower leg edema Edema Obesity, Class I, BMI 30-34.9 Obesity, unspecified Screening for lipid disorders Screening for diabetes mellitus Screening for thyroid disorder Screening for depression [facility] Diagnosis Elevated blood pressure reading without diagnosis of hypertension- Primary [facility] Diagnosis Primary hypertension- Primary Unspecified essential hypertension documented in this encounter [facility] Summary Purpose Family History No Family History Records FoundNo Family History Records FoundNo Family History Records FoundNo Family History Records Found Advance Directives No Advanced Directives Records FoundNo Advanced Directives Records FoundNo Advanced Directives Records FoundNo Advanced Directives Records Found Chief Complaint and Reason for Visit Chief Complaint LT EAR HEARING LOSS Additional Source Comments (unrecognized sect ion and content) No Status Records FoundNo Status Records FoundNo Status Records FoundNo Status Records Found INFORMATION SOURCE (unrecogn ized section and content) DATE CREATED AUTHOR 12/23/2020 [facility] DATE CREATED AUTHOR AUTHOR'S ORGANIZ ATION 12/23/2020 [facility] DATE CREATED AUTHOR AUTHOR'S ORGANIZ ATION 09/17/2025 [facility] DATE CREATED AUTHOR AUTHOR'S ORGANIZ ATION 09/24/2025 [facility] Goals (unrecognized section and content) Goals may be documented in a n alternate section Source Comments (unrecognize d section and content) In the event this informatio n is protected by the Federal Confidentiality of Alcohol and Drug Abuse Patient Records regulations: The Federal rules restrict any use of the information to criminally investigate or prosecute any alcohol or drug abuse patient.[facility] the event this information is protected by the Federal Confidentiality of Alcohol and Drug Abuse Patient Records regulations: The Federal rules restrict any use of the information to criminally investigate or prosecute any alcohol or drug abuse patient.[facility] the event this information is protected by the Federal Confidentiality of Alcohol and Drug Abuse Patient Records regulations: The Federal rules restrict any use of the information to criminally investigate or prosecute any alcohol or drug abuse patient.[facility] the event this information is protected by the Federal Confidentiality of Alcohol and Drug Abuse Patient Records regulations: The Federal rules restrict any use of the information to criminally investigate or prosecute any alcohol or drug abuse patient.[facility] the event this information is protected by the Federal Confidentiality of Alcohol and Drug Abuse Patient Records regulations: The Federal rules restrict any use of the information to criminally investigate or prosecute any alcohol or drug abuse patient.[facility] Reason for Visit (unrecogniz ed section and content) Reason Comments Establish Care Blood Pressure Check Reason Comments Results Reason Comments Blood Pressure Check Reason Comments Lab Orders Care Teams (unrecognized sec tion and content) Heating Repair Technician Relationship Specialty Start Date End Date Bailey Swan, MERCURY PURIFIER.HEARING CARE PRACTITIONER [address] [place] [address] PCP - General Family Medicine 07/20/23 Heating Repair Technician Relationship Specialty Start Date End Date Bailey Swan, MERCURY PURIFIER.HEARING CARE PRACTITIONER [address] [place] [address] PCP - General Family Medicine 07/20/23 Heating Repair Technician Relationship Specialty Start Date End Date Bailey Swan, MERCURY PURIFIER.HEARING CARE PRACTITIONER [address] [place] [address] PCP - General Family Medicine 07/20/23 Heating Repair Technician Relationship Specialty Start Date End Date Bailey Swan, MERCURY PURIFIER.HEARING CARE PRACTITIONER [address] [place] [address] PCP - General Family Medicine 07/20/23 FOR RECORDS PERTAINING TO PATIENTS WHO ARE OR HAVE BEEN ENROLLED IN A CHEMICAL DEPENDENCY/SUBSTANCEABUSE PROGRAM, SOME INFORMATION MAY BE OMITTED. This clinical summary was aggregated from multiple sources. Caution should be exercised in using it in the provision of clinical care. This summary normalizes information from multiple sources, and as a consequence, information in this document may materially change the coding, format and clinical context of patient data. In addition, data may be omitted in some cases. CLINICAL DECISIONS SHOULD BE BASED ON THE PRIMARY CLINICAL RECORDS. [place]. provides no warranty or guarantee of the accuracy or [phone] information in this [id number]
== END | disposition home or self-care (01) ==
LOC: US 09:22
PROVIDERS: PCP Nurse Practitioner Family; Referring Provider Physician Assistant; Visit Provider Physician Assistant
DX: L98.9 Disorder of the skin and subcutaneous tissue, unspecified (principal)
CPT/HCPCS: 76882